=== PATIENT | female | born 1955 | race Caucasian/White ===

== ENCOUNTER → 2016-10-19 16:04 | Outpatient (CLI) | payer BC ==
[2016-10-19 20:37] LABS: APPEARANCE HAZY (CLEAR); BILIRUBIN NEGATIVE (NEGATIVE); COLOR YELLOW (YELLOW); GLUCOSE NEGATIVE (NEGATIVE); KETONE NEGATIVE (NEGATIVE); LEUKOCYTE ESTERASE 2+ (NEGATIVE); NITRITE POSITIVE (NEGATIVE); PROTEIN TRACE mg/dL (NEGATIVE); SPECIFIC GRAVITY 1.015 (1.005-1.020); UROBILINOGEN NORMAL (NORMAL)
[2016-10-19 20:38] LABS: BACTERIA MANY /hpf (NONE SEEN); EPITHELIAL CELLS 0-5 /hpf (0-5); RED CELLS - URINE OCC /hpf (0-5); WHITE CELLS - URINE >50 /hpf (0-5)
== END | disposition home or self-care (01) ==
LOC: D.LABREF 16:04
PROVIDERS: Student in an Organized Health Care Education/Training Program
DX: N39.0 Urinary tract infection, site not specified (principal)

== ENCOUNTER 2016-10-21 11:04 | Outpatient (CLI) | payer BC ==
[~2016-10-21] VITALS: Ht 170.2 cm; Wt 93.6 kg
[2016-10-21] MEDS ORDERED: ATIVAN2 MG PO (11:37)
[2016-10-21] MEDS ORDERED: CARAFATE1 G PO (11:37)
[2016-10-21] MEDS ORDERED: ALDACTONE50 MG PO (11:37)
[2016-10-21] MEDS ORDERED: FLUTICASONE PRO16 GM NASAL (11:38)
[2016-10-21] MEDS ORDERED: METFORMIN HCL500 M1 PO (11:38)
[2016-10-21] MEDS ORDERED: CYMBALTA60 MG PO (11:38)
[2016-10-21] MEDS ORDERED: TIROSINT137 MCG PO (11:39)
[2016-10-21] MEDS ORDERED: LYRICA100 MG PO (11:40)
[2016-10-21] MEDS ORDERED: ZESTRIL10 MG PO (11:40)
[2016-10-21] MEDS ORDERED: PHENERGAN25 M1 PO (11:40)
[2016-10-21] MEDS ORDERED: OMEPRAZOLE40 MG PO (11:41)
[2016-10-21] MEDS ORDERED: PROPRANOLOL HCL60 MG PO (11:42)
[2016-10-21] MEDS ORDERED: TRIMETHOPRIM100 MG PO (11:43)
[2016-10-21] MEDS ORDERED: ULTRAM50 MG PO (11:43)
[2016-10-21] MEDS ORDERED: XIFAXAN550 MG PO (11:44)
[2016-10-21 11:56] VITALS: BP 122/72; Ht 170.2 cm; Wt 93.6 kg
--- NOTE | 2016-10-21 12:10 | NUR ---
1200-PRINCESS BUCK RN AT BEDSIDE TO PUT IN MIDLINE ORDERED
[2016-10-21 13:05] LABS: HEMOGLOBIN 11.6 g/dL (12-16); MCH 29.9 pg (26.0-34.0); MCHC 33.1 g/dL (31.0-37.0); MCV 90.2 fL (80.0-100.0); MEAN PLATELET VOLUME 10.5 fL (7.4-10.4); PLATELET COUNT 131 10x3/uL (130-400); RBC 3.88 10x6/uL (4.00-5.40); RDW 14.3 % (11.5-14.5); WBC 3.3 10x3/uL (4.8-10.8)
[2016-10-21 13:21] LABS: CREATININE - SERUM 0.7 mg/dL (0.6-1.3)
--- NOTE | 2016-10-21 13:39 | NUR ---
1325 REPORT FROM EAGLE RIVERA R.N. PATIENT RECEIVING INVANZ. RT MID ARM DRESSING INTACT TOLERATING INVANZ WITHOUT ANY REACTIONS NOTED. TOLERATED LUNCH. 1341 ANTIBIOTIC COMPLETED. PRINCESS BUCK DID MID LINE DRESSING CHANGE AND WAS TOLD HOME HEALTH WOULD TAKE CARE OF ANTIBIOTICS AND MID LINE CARE,
--- NOTE | 2016-10-21 13:44 | NUR ---
1334 FLUSHED LINE WITH SALINE AND HEPARIN. HAS FOR[facility]LY [facility] FOR INFUSION SUPPLIES.
[2016-10-21 13:50] LABS: BASOPHILS 1 % (0.0-2.0); EOSINOPHILS 4 % (0-7); LYMPHOCYTES 46 % (15-50); MONOCYTES 1 % (2-11); NEUTROPHILS 48 % (40-80); PLATELET ESTIMATE NORMAL
--- NOTE | 2016-10-21 13:55 | NUR ---
1353 LINE FLUSHED LEFT ARM MIDLINE WITH SALINE AND HEPARIN. DISCHARGE INSTRUCTIONS GIVEN TO HOME VIA AMBULATION.
== END 2016-10-21 13:55 | disposition home or self-care (01) ==
LOC: D.OPS 11:04
PROVIDERS: Student in an Organized Health Care Education/Training Program
DX: N10 Acute pyelonephritis (principal); B96.1 Klebsiella pneumoniae [K. pneumoniae] as the cause of diseases classified elsewhere

== ENCOUNTER → 2016-10-28 11:47 | Outpatient (CLI) | payer BC ==
[2016-10-21 11:56] VITALS: BMI 32.3
[~2016-10-28 11:47] MED LIST: ALDACTONE50 MG PO; ATIVAN2 MG PO; CARAFATE1 G PO; CYMBALTA60 MG PO; FLUTICASONE PRO16 GM NASAL; LYRICA100 MG PO; METFORMIN HCL500 M1 PO; OMEPRAZOLE40 MG PO; PHENERGAN25 M1 PO; PROPRANOLOL HCL60 MG PO; TIROSINT137 MCG PO; TRIMETHOPRIM100 MG PO; ULTRAM50 MG PO; XIFAXAN550 MG PO; ZESTRIL10 MG PO
[2016-10-28 12:03] LABS: BASOPHILS 0.8 % (0-2); EOSINOPHILS 4.6 % (0-7); HEMATOCRIT 45.8 % (36.0-48.0); IMMATURE GRANULOCYTES 0.8 % (0-5); LYMPHOCYTES 31.9 % (15-50); MCH 30.4 pg (26.0-34.0); MCHC 32.8 g/dL (31.0-37.0); MCV 92.7 fL (80.0-100.0); MEAN PLATELET VOLUME 11.7 fL (7.4-10.4); MONOCYTES 9.8 % (2-11); NEUTROPHILS 52.1 % (40-80); RBC 4.94 10x6/uL (4.00-5.40); RDW 14.1 % (11.5-14.5); WBC 5.2 10x3/uL (4.8-10.8)
[2016-10-28 12:04] LABS: PLATELET COUNT 174 10x3/uL (130-400)
== END | disposition home or self-care (01) ==
LOC: D.LABREF 11:47
PROVIDERS: Student in an Organized Health Care Education/Training Program
DX: Z51.81 Encounter for therapeutic drug level monitoring (principal); Z79.899 Other long term (current) drug therapy

== ENCOUNTER → 2017-01-30 15:47 | Outpatient (CLI) | payer BC ==
[2016-10-21 11:56] VITALS: BMI 32.3
[2017-01-30 17:06] LABS: APPEARANCE CLEAR (CLEAR); BILIRUBIN NEGATIVE (NEGATIVE); COLOR YELLOW (YELLOW); GLUCOSE NEGATIVE (NEGATIVE); KETONE NEGATIVE (NEGATIVE); LEUKOCYTE ESTERASE NEGATIVE (NEGATIVE); NITRITE NEGATIVE (NEGATIVE); PROTEIN NEGATIVE (NEGATIVE); UROBILINOGEN NORMAL (NORMAL)
== END | disposition home or self-care (01) ==
LOC: D.LABREF 15:47
PROVIDERS: Student in an Organized Health Care Education/Training Program
DX: N10 Acute pyelonephritis (principal)